=== PATIENT | female | born 1950 | race Two or more races ===

== ENCOUNTER → 2022-09-03 08:00 | Outpatient (CLI) | payer OTHER ==
[~2022-09-03] VITALS: Ht 160 cm; Wt 90.7 kg
[~2022-09-03 08:00] MED LIST: ATORVASTATIN CA20 MG PO; CYMBALTA60 MG PO; GLIMEPIRIDE1 MG; GLIMEPIRIDE2 MG; MICARDIS80 MG PO; SYNTHROID50 MCG PO; XARELTO20 MG PO; ZIAC 5-6.25 MG1 EACH PO; [UNRECOGNIZED DRUG - OTHER] IJ
== END | disposition home or self-care (01) ==
LOC: ADM 07:30 → LAB 08:00 → CIR.AMB 09-05 07:30 → EDSTATUS 09-05 07:30
PROVIDERS: ATTEND Obstetrics & Gynecology
DX: Z03.818 Encounter for observation for suspected exposure to other biological agents ruled out (principal); Z20.828 Contact with and (suspected) exposure to other viral communicable diseases; I10 Essential (primary) hypertension; E78.2 Mixed hyperlipidemia; D68.8 Other specified coagulation defects; E71.19 Other disorders of branched-chain amino-acid metabolism; J45.41 Moderate persistent asthma with (acute) exacerbation

== ENCOUNTER 2022-10-10 06:58 | Day surgery (SDC) | payer OTHER ==
[2022-10-10] MEDS ORDERED: Tylenol #3 PO (14:28)
[2022-10-10] MEDS ORDERED: MORGIDOX100 MG PO (14:28)
== END 2022-10-10 18:25 | disposition home or self-care (01) ==
LOC: CIR.AMB 06:58
PROVIDERS: ATTEND Obstetrics & Gynecology
DX: C54.1 Malignant neoplasm of endometrium (principal); N95.0 Postmenopausal bleeding; N84.0 Polyp of corpus uteri; D25.0 Submucous leiomyoma of uterus; Z88.6 Allergy status to analgesic agent; Z20.822 Contact with and (suspected) exposure to COVID-19; I10 Essential (primary) hypertension